=== PATIENT | male | born 1985 | race Caucasian/White ===

== ENCOUNTER → 2020-09-09 | Outpatient (CLI) | payer BC ==
[~2020-09-09] MED LIST: BACTROBAN OINT22 GM EXT; KEFLEX CAP 500500 MG PO; LISINOPRIL10 MG PO
== END ==
LOC: KOH-I 16:08
DX: R55 Syncope and collapse (principal)
CPT/HCPCS: 70450

== ENCOUNTER 2021-03-05 19:54 | Emergency (ER) | payer BC ==
[2021-03-06] MEDS ORDERED: IBUPROFEN600 MG PO (01:51)
== END 2021-03-06 01:54 | disposition home or self-care (01) ==
LOC: ER1 19:54
DX: S59.901A Unspecified injury of right elbow, initial encounter (principal); F17.220 Nicotine dependence, chewing tobacco, uncomplicated; W01.0XXA Fall on same level from slipping, tripping and stumbling without subsequent striking against object, initial encounter
CPT/HCPCS: 73080; 73200; 99283

== ENCOUNTER 2021-04-18 23:12 | Emergency (ER) | payer BC ==
[~2021-04-18 23:12] MED LIST changes: +IBUPROFEN600 MG PO
[2021-04-19 00:38] LABS: HEMOGLOBIN 15.1 gm/dl (14.0-17.5); RED BLOOD COUNT 4.8 M/UL (4.20-5.50); WHITE BLOOD COUNT 9.5 K/UL (4.5-11.0)
[2021-04-19 01:00] LABS: BUN/CREATININE RATIO 17 (0-10)
[2021-04-19] MEDS ORDERED: DOXYCYCLINE HY100 M2 PO (01:51)
[2021-04-19] MEDS ORDERED: IBUPROFEN800 MG PO (01:51)
[2021-04-21 15:14] LABS: E. CHAFFEENSIS (HME) IGG TITER Negative (Neg:<1:64); E. CHAFFEENSIS (HME) IGM TITER Negative (Neg:<1:20)
== END 2021-04-19 02:05 | disposition home or self-care (01) ==
LOC: ER1 23:12
PROVIDERS: Emergency Medicine
DX: U07.1 COVID-19 (principal); S80.261A Insect bite (nonvenomous), right knee, initial encounter; S20.362A Insect bite (nonvenomous) of left front wall of thorax, initial encounter; S20.461A Insect bite (nonvenomous) of right back wall of thorax, initial encounter; I10 Essential (primary) hypertension; L03.115 Cellulitis of right lower limb; F17.220 Nicotine dependence, chewing tobacco, uncomplicated; W57.XXXA Bitten or stung by nonvenomous insect and other nonvenomous arthropods, initial encounter
CPT/HCPCS: 80053; 83605; 84550; 85025; 85652; 86140; 86618; 86666; 86757; 87040; 99283; U0002

== ENCOUNTER 2021-06-25 01:30 | Emergency (ER) | payer BC ==
[~2021-06-25 01:30] MED LIST changes: +DOXYCYCLINE HY100 M2 PO; +IBUPROFEN800 MG PO
[2021-06-25] MEDS ORDERED: BACTRIM DS TAB1 EACH PO (02:51)
[2021-06-25] MEDS ORDERED: CEPHALEXIN500 MG PO (02:51)
== END 2021-06-25 02:55 | disposition home or self-care (01) ==
LOC: ER1 01:30
DX: L05.01 Pilonidal cyst with abscess (principal)
CPT/HCPCS: 99282